=== PATIENT | male | born 2000 | race Caucasian/White ===

== ENCOUNTER 2021-03-09 07:57 | Emergency (ER) | payer BC ==
[~2021-03-09] VITALS: Ht 188 cm; Wt 75.0 kg
[2021-03-09 08:09] VITALS: TEMP 97.1
[2021-03-09 08:51] LABS: BASO % 0.4 % (0.0-2.0); EOS % 0.1 % (0-4.0); GRAN # 7.1 K/mm3 (1.4-6.5); GRAN % 84.2 % (42.2-75.2); HEMATOCRIT 44.6 % (36.0-47.0); HEMOGLOBIN 15.9 g/dl (12.5-16.1); LYMPH # 0.8 K/mm3 (1.2-3.4); LYMPH % 9.1 % (20.0-51.0); MEAN CELL VOLUME 84 fl (80.0-95.0); MEAN CORPUSCULAR HEMOGLOBIN 30 pg (26.0-32.0); MEAN CORPUSCULAR HGB CONC 36 g/dl (33.0-37.0); MEAN PLATELET VOLUME 10.1 fl (7.4-10.4); MONO # 0.5 K/mm3 (0.1-0.6); MONO % 6.1 % (1.7-9.3); PLATELET COUNT 228 K/mm3 (130-400); RED BLOOD COUNT 5.34 M/mm3 (4.20-5.60); REDCELL DISTRIBUTION WIDTH-CV 12.4 % (11.5-14.5)
[2021-03-09 09:35] LABS: ALBUMIN 4.1 gm/dL (3.5-5.0); BILIRUBIN,TOTAL 1.2 mg/dL (0.2-1.2); CREATININE, serum 0.92 mg/dL (0.72-1.25); POTASSIUM 3.1 mmol/L (3.5-4.5); TOTAL PROTEIN 6.8 gm/dL (6.2-8.1)
[2021-03-09] MEDS ORDERED: ZOFRAN ODT4 MG PO (10:17)
[2021-03-09 10:27] VITALS: BP 113/75; PULSE 98
== END 2021-03-09 10:27 | disposition home or self-care (01) ==
LOC: COL.ER 07:57
PROVIDERS: Personal Emergency Response Attendant
DX: E86.0 Dehydration (principal); R11.2 Nausea with vomiting, unspecified; R19.7 Diarrhea, unspecified
CPT/HCPCS: J1790; J7030